=== PATIENT | female | born 1980 | race Caucasian/White ===

== ENCOUNTER → 2017-06-15 | Outpatient (CLI) | payer BC ==
[~2017-06-15] MED LIST: KETOPROFEN PO
--- NOTE | ~2017-06-15 | US6 ---
[facility] A Service of [facility] RADIOLOGY TEXT RESULTS PATIENT: JAI RAO LOCATION: [facility] : 76 UNIT #: [id number] AGE: [address]: Luiza Parmar APRN SEX: F ORDER DR: [id number] [address] [id number] O MR#: [id number] Acc #: [id number] NAME: JAI RAO : 1980 SEX: F STUDY DATE/TIME: 06/15/2017 9:18 UNIT: SG ROOM: STUDY DESCRIPTION: US Abdominal Limited Attending Physician: Luiza Parmar A.P.R.N. Referring Physician: Luiza Parmar A.P.R.N. Ordering Physician: Luiza Parmar A.P.R.N. Primary Care Physician: Evangelina Cano M.D. MEDICAL IMAGING REPORT This report is preliminary unless electronic signature is present. EXAM Right upper quadrant ultrasound 06/15/2017 HISTORY Right upper quadrant pain and nausea and vomiting 9 days. Elevated liver enzymes. TECHNIQUE Real-time ultrasonography of the right upper quadrant performed COMPARISON CT of the abdomen 01/07/2019 FINDINGS The visualized portions of pancreas unremarkable. Much of the pancreatic body and tail were obscured by bowel gas artifact. The liver appears normal in contour and echotexture. It is slightly enlarged at 18.7 cm in craniocaudal extent. No suspicious focal hepatic parenchymal abnormality. The hepatic veins and inferior vena cava and portal vein appear grossly patent. The gallbladder is not pathologically dilated. The gallbladder wall measures between 2.5 mm and 3.8 mm in thickness. No gallstones or pericholecystic fluid. Cause for the gallbladder wall prominence unclear. Correlate with any clinical concern for cholecystitis. Gallbladder wall thickening could be a reflection of the patient's metabolic status. There is no intrahepatic biliary ductal dilatation. The extrahepatic common duct is borderline prominent at 5 mm in diameter with no obstructing process seen. The right kidney measures 10.74 cm in greatest length. No hydronephrosis or nephrolithiasis. No cystic or solid mass lesion and no perinephric fluid collection. IMPRESSION 1. The gallbladder wall is mildly prominent measuring 2.5-3.8 mm in thickness without pathologic dilatation, gallstones or STS. [facility] A Service of [facility] RADIOLOGY TEXT RESULTS PATIENT: JAI RAO LOCATION: [facility] : 76 UNIT #: [id number] AGE: [address]: Luiza Parmar [employer] SEX: F ORDER DR: pericholecystic fluid. Please correlate with any clinical concern for possible gallbladder inflammation. There is no compelling ultrasound evidence of acute cholecystitis. The gallbladder wall prominence is nonspecific and could be a reflection of metabolic status or any underlying chronic liver disease. There is no intrahepatic ductal dilatation. The extrahepatic common duct is borderline prominent at 5 mm. Again there is no obstructing process seen. If further gallbladder or biliary imaging is felt clinically warranted, consider radionuclide hepatobiliary scan or MRCP. 2. The liver is mildly enlarged but otherwise unremarkable. Contour and echotexture normal. No focal abnormality. 3. Right kidney normal. 4. Visualized pancreas unremarkable, but much of pancreas is obscured by bowel gas artifact. If further pancreatic imaging is clinically warranted, consider CT. Dictated by... Gabe Singh M.D. THIS IS AN ELECTRONICALLY VERIFIED REPORT Gabe Singh M.D. at 06/16/2017 6:31 PM TWILA/kinza TD: 06/15/2017 18:11 JOB #: [id number] MEDICAL IMAGING REPORT Page 1 of 1
== END | disposition home or self-care (01) ==
LOC: SGUS 09:09
DX: R74.8 Abnormal levels of other serum enzymes (principal); R11.2 Nausea with vomiting, unspecified
CPT/HCPCS: 76705